=== PATIENT | male | born 1980 | race Caucasian/White ===

== ENCOUNTER → 2016-10-22 | Outpatient (CLI) | payer BC ==
--- NOTE | 2016-10-23 16:48 | XR ---
EXAMINATION TYPE: 5 views lumbar spine. 2 views left hip. DATE OF EXAM: 10/22/2016 5:07 PM COMPARISON: NONE HISTORY: 35-year-old male low back pain and left hip pain FINDINGS: Lumbar spine: 5 lumbar type vertebral bodies. S1 posterior fusion defect. No pars interarticularis defect. There is mild degenerative disc interspace narrowing at L5-S1 with minimal endplate spondylosis throughout. V ertebral body heights are preserved and alignment is maintained. Left hip: Staple line in the lower pelvis from prior bowel anastomosis. There is evidence of a surfacing total left hip arthroplasty. Alignment is grossly anatomic. No periprosthetic fracture seen. IMPRESSION: 1. Lumbar spine: Suggestion of very mild degenerative disc disease. No vertebral compression collapse or malalignment. 2. Left hip: Uncomplicated appearance to the resurfacing left hip total arthroplasty.
== END | disposition home or self-care (01) ==
LOC: RADXRYALE 16:45
PROVIDERS: ATTEND Physician Assistant Medical
DX: M54.42 Lumbago with sciatica, left side (principal); M25.552 Pain in left hip; Z96.642 Presence of left artificial hip joint
CPT/HCPCS: 72110; 73502

== ENCOUNTER → 2017-02-21 | Outpatient (CLI) | payer BC | END | disposition home or self-care (01) | LOC: RADMRIMAIN 20:27 | PROVIDERS: ATTEND Family Medicine | DX: Z53.9 Procedure and treatment not carried out, unspecified reason (principal) ==

== ENCOUNTER → 2020-05-08 | Outpatient (CLI) | payer BC ==
--- NOTE | 2020-05-09 07:50 | XR ---
EXAMINATION TYPE: XR chest 2V DATE OF EXAM: 05/08/2020 COMPARISON: None HISTORY: 39-year-old male chest pain upon breathing, R071. TECHNIQUE: Frontal and lateral views FINDINGS: The cardiomediastinal silhouette, aorta, and pulmonary vasculature are within normal limits. Lungs an d pleural spaces are clear. IMPRESSION: No acute cardiopulmonary process.
== END | disposition home or self-care (01) ==
LOC: RADXRYALE 15:55
PROVIDERS: ATTEND Physician Assistant Medical
DX: R07.1 Chest pain on breathing (principal)
CPT/HCPCS: 71046

== ENCOUNTER → 2021-12-27 | Outpatient (CLI) | payer BC ==
--- NOTE | 2021-12-28 07:15 | XR ---
EXAMINATION TYPE: XR Hip Complete LT DATE OF EXAM: 12/27/2021 CLINICAL HISTORY: pain TECHNIQUE: AP and frogleg views of the left hip are obtained. COMPARISON: None. FINDINGS: There is no acute fracture/dislocation evident. Left hip prosthesis noted in place. The ov erlying soft tissue appears unremarkable. IMPRESSION: 1. There is no acute fracture or dislocation.ICD 10 NO FRACTURE, INITIAL EVALUATION
== END | disposition home or self-care (01) ==
LOC: RADXRYALE 16:51
PROVIDERS: ATTEND Physician Assistant
DX: M25.552 Pain in left hip (principal)
CPT/HCPCS: 73502

== ENCOUNTER → 2022-01-17 | Outpatient (CLI) | payer BC ==
--- NOTE | 2022-01-17 22:05 | XR ---
EXAMINATION TYPE: XR Hip Complete LT DATE OF EXAM: 01/17/2022 CLINICAL HISTORY: Extreme pain. TECHNIQUE: AP and frogleg views of the left hip are obtained. COMPARISON: Prior left hip x-ray December 27, 2021 and older study October 22, 2016 FINDINGS: Acetabular metallic component has changed positions with loss of superior lateral covering where lucency is now present. The femoral head component is stable and satisfactory in position. Surg ical sutures overlying pelvis are redemonstrated. IMPRESSION: Slippage of the superior metallic acetabular component now pointing lateral direction. Ad vise orthopedic surgical evaluation.
== END | disposition home or self-care (01) ==
LOC: RADXRYALE 15:14
PROVIDERS: ATTEND Physician Assistant
DX: M25.552 Pain in left hip (principal)
CPT/HCPCS: 73502

== ENCOUNTER 2022-01-21 15:07 | Emergency (ER) | payer BC ==
[2022-01-21 17:18] VITALS: BP 145/80; PULSE 111; RESP 16; TEMP 98
--- NOTE | 2022-01-21 17:53 | XR ---
EXAMINATION TYPE: XR Hip Complete LT, XR femur LT DATE OF EXAM: 01/21/2022 COMPARISON: Left hip radiograph 01/17/2022 HISTORY: Left hip pain TECHNIQUE: Frontal and lateral views left hip. Frontal and lateral views left femur. FINDINGS: Left hip: Postsurgical changes consistent with left hip spaces. There is similar appearing abnormal rotation or slippage of the acetabular component. No definite acute osseous abnormality. Soft tissues appear unr emarkable. Left femur: No acute fracture or abnormality. The soft tissues appear unremarkable. Knee joint spaces are maintai ace. IMPRESSION: Unchanged slippage of the acetabular component of the left hip prosthesis.
--- NOTE | 2022-01-21 18:20 | ED ---
Extremity Problem HPI - General Chief complaint: Extremity Problem,Nontraumatic Stated complaint: L leg/hip pain Time Seen by Provider: 01/21/22 17:17 Source: patient Mode of arrival: wheelchair Limitations: no limitations - History of Present Illness Initial comments: This 41-year-old male presents with a complaint of some left hip pain. He states that it is very severe in nature. He states that it is been somewhat chronic in nature but worse over the last 4 days. He saw his primary care 4 days ago and they did an x-ray. He is unsure of the exact results. His primary care prescribed some [place] and he is gone through all of the pain medication. He states that he had to take twice as much to relieve the pain. He states that it is worse with any movement. He denies any actual trauma but states that his leg went out 4 days ago. He has been unable to bear any weight on his left leg. He also relates that he had hip surgery [address] Kenny out of [facility]. He's been following up with them and apparently has an appointment in 2 days and believes that he needs surgery. He denies any paresthesias. There is no other complaints or modifying factors. No fevers or chills. - Related Data Previous Rx's Medication Instructions Recorded HYDROcodone/APAP 10-325MG [[place] 1 tab PO Q4-6H PRN #12 tab 01/21/22 10-325] Allergies Allergy/AdvReac Type Severity Reaction Status Date / Time cefazolin [From Ancef] Allergy Unknown Verified 01/21/22 17:18 celecoxib [From Celebrex] Allergy Unknown Verified 01/21/22 17:18 Review of Systems ROS Statement: Those systems with pertinent positive or pertinent negative responses have been documented in the HPI. ROS Other: All systems not noted in ROS Statement are negative. Past Medical History Past Medical History: Hypertension History of Any Multi-Drug Resistant Organisms: None Reported Past Surgical History: Bowel Resection, Orthopedic Surgery Additional Past Surgical History / Comment(s): left hip replacement, ulcerative colitis Past Psychological History: No Psychological Hx Reported Smoking Status: Current every day smoker Past Alcohol Use History: Daily Past Drug Use History: None Reported General Exam Limitations: no limitations General appearance: alert, in no apparent distress Head exam: Present: atraumatic, normocephalic GI/Abdominal exam: Present: soft. Absent: tenderness Extremities exam: Present: normal inspection, tenderness, normal capillary refill, other (There is significant tenderness noted at the left hip region. There is pain with any attempts at range of motion left hip. There is minimal tenderness noted to the proximal left femur. There is no swelling identified.). Absent: pedal edema, joint swelling, calf tenderness Back exam: Present: normal inspection. Absent: tenderness Neurological exam: Present: oriented X3 Psychiatric exam: Present: normal affect, normal mood Skin exam: Present: intact. Absent: rash Course Vital Signs 01/21/22 17:15 Temperature 98 F Pulse Rate 111 H Respiratory 16 Rate Blood Pressure 145/80 O2 Sat by Pulse 96 Oximetry Medical Decision Making - Medical Decision Making The patient was seen and examined. X-rays were taken of the left hip and left femur. There appears to be slippage of the acetabular component of the prosthesis. This is similar to x-rays taken this past week. There is no identifiable fractures. It is felt as though this is a significant abnormality in that he should follow-up with his orthopedic physician as soon as possible as he likely will require surgical repair. Additional pain medications will be prescribed for the next 3 days. Return parameters are discussed. Work note is given. I do recommend no weightbearing on that left leg until cleared by orthopedics. Disposition Clinical Impression: Left hip pain, Dislocation of hip joint prosthesis Disposition: HOME SELF-CARE Condition: Fair Instructions (If sedation given, give patient instructions): Hip Pain (ED) Additional Instructions: Please follow-up with Dr. Kenny and 2 days as scheduled. Prescriptions: HYDROcodone/APAP 10-325MG [[place] 10-325] 1 tab PO Q4-6H PRN #12 tab PRN Reason: Pain Is patient prescribed a controlled substance at d/c from ED?: Yes If prescribed controlled substance>3 days was MAPS reviewed?: Prescribed <3 Days Referrals: Narcisa Lewis PAC [Primary Care Provider] - 1-2 days Time of Disposition: 18:18
--- NOTE | 2022-01-23 11:25 | ED ---
Disposition Clinical Impression: Left hip pain, Dislocation of hip joint prosthesis Disposition: HOME SELF-CARE Condition: Fair Instructions (If sedation given, give patient instructions): Hip Pain (ED) Additional Instructions: Please follow-up with Dr. Kenny and 2 days as scheduled. Prescriptions: HYDROcodone/APAP 10-325MG [[place] 10-325] 1 tab PO Q4-6H PRN #12 tab PRN Reason: Pain HYDROcodone/APAP 10-325MG [[place] 10-325] 1 tab PO Q4-6H PRN #12 tab PRN Reason: Pain Referrals: Narcisa Lewis, RADHA [Primary Care Provider] - 1-2 days
== END 2022-01-21 18:32 | disposition home or self-care (01) ==
LOC: EC 15:07
DX: T84.020A Dislocation of internal right hip prosthesis, initial encounter (principal); I10 Essential (primary) hypertension; F17.200 Nicotine dependence, unspecified, uncomplicated; Z88.1 Allergy status to other antibiotic agents; Z88.6 Allergy status to analgesic agent
CPT/HCPCS: 73502